=== PATIENT | female | born 1985 | race Asian ===

== ENCOUNTER 2022-07-02 11:53 | Emergency (ER) | payer OTHER, SELFPAY ==
--- NOTE | ~2022-07-02 | CT_ITS ---
EXAMINATION: CT abdomen pelvis w con DATE: 07/02/2022 16:14 INDICATION: Epigastric abdominal pain. TECHNIQUE: Computed tomography (CT) of the abdomen and pelvis was performed with 100 mL Omnipaque 350 intravenous contrast. Automated exposure control and iterative reconstruction technique were employe d. The dose-length product was 262.85 mGy-cm. COMPARISON: None. FINDINGS: The visualized portions of the lung bases are clear without pneumonia or pleural effusion. The heart size is normal. No pericardial effusion. There are cysts in the liver measuring up to 11 mm . The gallbladder, spleen, pancreas, adrenal glands, and kidneys are normal. There is liquid stool in the colon suggestive of diarrhea. The appendix is normal. There is wall thickening of loops of dista l small bowel, consistent with enteritis. There are no pathologically enlarged lymph nodes. There is no free intraperitoneal fluid. There is mild thoracolumbar spondylosis. IMPRESSION: 1. Distal enteritis. Reviewed, dictated and finalized at location A. [employer] IMPRESSION: 1. Distal enteritis.
[2022-07-02 12:12] VITALS: BP 120/70; PULSE 83; RESP 16; TEMP 36.3; O2SAT 100
[2022-07-02 12:30] LABS: Basophils Percent Auto 0.2 % (0.2-1.2); Eosinophils Percent Auto 0.2 % (0-4.4); Hematocrit 38.8 % (37.0-47.0); Hemoglobin 13.2 g/dL (12.0-15.0); Immature Granulocyte Absolute 0.02 K/mm3 (0.00-0.031); Immature Granulocyte Percent A 0.2 % (0-0.5); Lymphocytes Absolute Auto 1.31 K/mm3 (0.9-3.2); Lymphocytes Percent Auto 15.6 % (18.3-44.2); Mean Corpuscular Volume 91.1 fl (80-100); Mean Platelet Volume 10.6 fl (7.4-10.4); Monocytes Absolute Auto 0.5 K/mm3 (0.1-0.6); Monocytes Percent Auto 5.6 % (2.6-8.5); Neutrophils Absolute Auto 6.5 K/mm3 (1.3-6.7); Neutrophils Percent Auto 78.2 % (45.5-73.1); Platelet Count Result 270 k/mm3 (150-375); Red Blood Count 4.26 M/mm3 (4.2-5.4); Red Cell Distribution Width 11.7 % (11.5-14.5); White Blood Count 8.4 K/mm3 (4.5-10.0)
[2022-07-02 12:46] LABS: Appearance Urine Clear (Clear); Bacteria Urine None Seen /hpf; Bilirubin Urine Negative (Negative); Blood Urine Trace (Negative); Color Urine Yellow (Yellow); Glucose Urine UA Negative (Negative); Ketones Urine Negative (Negative); Leukocyte Esterase Ur Negative LEU/UL (Negative); Nitrate Urine Negative (Negative); Non Pathogenic Casts 0-2; Protein Urine Negative (Negative); RBC Urine 0-2 /hpf (0-2); Specific Grav Ur 1.027 (1.001-1.035); Squamous Epithelial Cell Urine Few /hpf (Few); Urobilinogen Urine 0.2 mg/dL (<2.0); WBC Urine 0-5 /hpf
[2022-07-02 12:59] LABS: Alanine Aminotransferase 25 U/L (6-35); Albumin Level 4.6 g/dL (3.5-5.1); Alkaline Phosphatase 83 U/L (38-126); Anion Gap 7 mmol/L (8-16); Aspartate Amino Transferase 24 U/L (14-36); Bilirubin,Total 0.5 mg/dL (0.2-1.3); Blood Urea Nitrogen 13 mg/dL (7-17); Calcium 8.6 mg/dL (8.4-10.2); Carbon Dioxide 25 mmol/L (22-30); Chloride 104 mmol/L (98-107); Estimated CRCL calculation 78 ml/min; Estimated Glomerular Filt Rate > 60; Glucose 111 mg/dL (65-110); Lipase 36 U/L (23-300); Potassium 3.8 mmol/L (3.4-5.0); Sodium 136 mmol/L (137-145)
[2022-07-02 13:00] LABS: Add Urine Microscopic? YES
--- NOTE | 2022-07-02 15:19 | ED.ABDPAIN ---
HPI - Abdominal Pain General Chief Complaint: Abdominal Pain Stated Complaint: abd pain Time Seen by Provider: 07/02/22 14:22 Source: patient Mode of arrival: ambulatory Limitations: no limitations History of Present Illness HPI narrative: This is a 37-year-old female that presents to the emergency department for epigastric pain ongoing over the last couple of days. Reports crampy epigastric pain worse after eating. She has not been taking any medications for this. Reports 1 episode of diarrhea. Denies fever, vomiting, dysuria, or hematuria. Related Data Allergies Allergy/AdvReac Type Severity Reaction Status Date / Time diphenhydramine AdvReac Anaphylactic Verified 07/02/22 15:21 [From Benadryl] Shock Review of Systems Review of Systems: CONSTITUTIONAL: Denies fever GASTROINTESTINAL: Reports abdominal pain and diarrhea. Denies nausea, vomiting GENITOURINARY: Denies dysuria or hematuria. All systems reviewed & are unremarkable except as noted in HPI and below PMFSH Past Medical History Medical History (Updated 07/02/22 @ 16:26 by Kezia Dean PA-C) No active medical problems Social History Social History (Updated 07/02/22 @ 15:25 by Kezia Dean PA-C) Smoking status: Never smoker Substance use: never Exam Narrative: GENERAL: Well-appearing, well-nourished, and in no acute distress. HEAD: Normocephalic, atraumatic. EYES: EOMI. CHEST: Clear to auscultation. No respiratory distress. No wheezes rales or rhonchi HEART: Regular rate and rhythm. No murmur heard. Normal peripheral pulses. ABDOMEN: Soft, nondistended, normal active bowel sounds. Mild tenderness to palpation in the epigastrium and RUQ, without guarding. No CVA tenderness EXTREMITIES: Normal range of motion. No edema. SKIN: Warm, dry, no rash. NEURO: No focal deficits. Alert and oriented x3. PSYCH: Normal mood and affect Course Course Emergency Course: Patient updated on workup and agrees with plan of care Vital Signs Vital signs: Vital Signs Temperature 97.4 F L 07/02/22 12:12 Pulse Rate 83 07/02/22 12:12 Respiratory Rate 16 07/02/22 12:12 Blood Pressure 120/70 07/02/22 12:12 Pulse Oximetry 100 07/02/22 12:12 Oxygen Delivery Room Air 07/02/22 12:12 Temperature 97.4 F L 07/02/22 12:12 Pulse Rate 83 07/02/22 12:12 Respiratory Rate 16 07/02/22 12:12 Blood Pressure 120/70 07/02/22 12:12 Pulse Oximetry 100 07/02/22 12:12 Oxygen Delivery Room Air 07/02/22 12:12 MDM - Abdominal Pain MDM Narrative Medical decision making narrative: Patient presents to the ER for abdominal pain and diarrhea. Ongoing over the last couple of days. She is afebrile and nontoxic appearing. Her vitals are stable. CBC without leukocytosis. Metabolic panel and lipase without concerning findings. UA without evidence of infection. test is negative. CT scan of the abdomen/pelvis shows enteritis. Patient was updated on workup. Instructed on continued care of likely viral infection. Will be given follow up with GI if needed. She was given warnings to return to the ER Differential Diagnosis Differential diagnosis: Likely constipation, diverticulitis, gastroenteritis, small bowel obstruction and other (cholecystitis, pancreatitis) Lab Data Attestation: I reviewed the patient's lab results. 07/02/22 12:22 07/02/22 12:22 Labs: Lab Results 07/02/22 07/02/22 07/02/22 Range/Units 12:22 12:22 12:22 WBC 8.4 (4.5-10.0) K/mm3 RBC 4.26 (4.2-5.4) M/mm3 Hgb 13.2 (12.0-15.0) g/dL Hct 38.8 (37.0-47.0) % MCV 91.1 (80-100) fl MCH 31.0 (26-34) pg MCHC 34.0 (32-36) g/dl RDW 11.7 (11.5-14.5) % Plt Count 270 (150-375) k/mm3 MPV 10.6 H (7.4-10.4) fl Immature Gran % (Auto) 0.2 (0-0.5) % Neut % (Auto) 78.2 H (45.5-73.1) % Lymph % (Auto) 15.6 L (18.3-44.2) % Nye % (Auto) 5.6 (2.6-8.5) % Eos % (Auto) 0.2 (0-4.4) % [place]
[2022-07-02] MEDS: Please add drug allergy info to patient profile. 1 EACH XX (16:02)
[2022-07-02] MEDS: PANTOPRAZOLE SODIUM IV 40 MG VIAL IV PUSH (16:03)
== END 2022-07-02 17:45 | disposition home or self-care (01) ==
PROVIDERS: Preventive Medicine Aerospace Medicine; Emergency Provider Physician Assistant
DX: K52.9 Noninfective gastroenteritis and colitis, unspecified (principal)
CPT/HCPCS: 36415; 74177; 80053; 81001; 81025; 83690; 85025; 96365; 96375; 99284; C9113; J0131; Q9967